=== PATIENT | male | born 1985 | race Two or more races ===

== ENCOUNTER → 2019-02-09 | Outpatient (CLI) | payer OTHER ==
--- NOTE | 2019-02-09 17:34 | XR ---
EXAMINATION TYPE: XR cervical spine 5 views comp, XR thoracic spine 3 views XR shoulder complete 3 views RT DATE OF EXAM: 02/09/2019 COMPARISON: None HISTORY: 33-year-old male chronic pain. Z68.26, M54.2, G47.00 FINDINGS: Cervical spine: No predental space widening or prevertebral soft tissue swelling. ACDF hardware at C3-C4 with mature interbody ankylosis. Mild degenerative disc disease below it C4-C5. Alignment is maintained mild unco vertebral joint and facet arthropathy also at C4-C5. Thoracic spine: Vertebral body heights are preserved. Alignment is maintained. Mild endplate spondylosis midthoracic spine. Right shoulder: AC joint appears congruent and intact. Subacromial space is preserved. No acute fracture, subluxation , or dislocation. IMPRESSION: 1. Cervical spine: Uncomplicated C3-C4 ACDF. Mild degenerative disc disease and uncovertebral joint a rthropathy below at C4-C5. No malalignment. 2. Thoracic spine: Mild endplate spondylosis midthoracic spine. No vertebral compression collapse or malalignment. 3. Right shoulder: No acute osseous abnormality seen.
== END | disposition home or self-care (01) ==
LOC: RADXRMAIN 14:36
PROVIDERS: ATTEND Physician Assistant
DX: M50.321 Other cervical disc degeneration at C4-C5 level (principal); M46.92 Unspecified inflammatory spondylopathy, cervical region; M47.814 Spondylosis without myelopathy or radiculopathy, thoracic region; M25.511 Pain in right shoulder
CPT/HCPCS: 72050; 72070

== ENCOUNTER → 2019-04-29 | Outpatient (CLI) | payer OTHER | END | disposition home or self-care (01) | LOC: RADECHMAIN 11:50 | PROVIDERS: ATTEND Pediatrics | DX: R00.2 Palpitations (principal) | CPT/HCPCS: 93270 ==

== ENCOUNTER → 2020-06-21 | Outpatient (CLI) | payer OTHER ==
--- NOTE | 2020-06-22 08:42 | MR ---
EXAMINATION TYPE: MR lumbar spine wo con DATE OF EXAM: 06/21/2020 COMPARISON: None HISTORY: Low back pain since summer 2019. CONTRAST: 0 mL intravenous Gadavist. TECHNIQUE: Multiplanar, multisequence images of the lumbar spine were acquired. FINDINGS: L5-S1: No significant disc bulge or disc herniation. No spinal canal stenosis. No foraminal stenosi s. Disc desiccation is present. No loss of disc height is present. In the sagittal T1-weighted images there is suggestion of some minimal subligamentous disc herniation extending beyond the endplate of S1. No significant thecal sac compression is evident. This may be slightly greater in the right parac entral region. L4-L5: No significant disc bulge or disc herniation. No spinal canal stenosis. No foraminal stenosi s. Disc desiccation is present. No loss of disc height is present. L3-L4: No significant disc bulge or disc herniation. No spinal canal stenosis. No foraminal stenosi s. L2-L3: No significant disc bulge or disc herniation. No spinal canal stenosis. No foraminal stenosi s. L1-L2: No significant disc bulge or disc herniation. No spinal canal stenosis. No foraminal stenosi s. T12-L1: No significant disc bulge or disc herniation. No spinal canal stenosis. No foraminal stenos is. IMPRESSION: 1. Mild disc desiccation without loss of disc height at L4-5 and L5-S1. 2. Small subligamentous disc herniation L5-S1
== END ==
LOC: RADMRIMAIN 16:09
PROVIDERS: ATTEND Physician Assistant
DX: M51.37 Other intervertebral disc degeneration, lumbosacral region (principal)
CPT/HCPCS: 72148

== ENCOUNTER 2021-05-01 04:56 | Emergency (ER) | payer OTHER ==
[2021-05-01] MEDS ORDERED: KETOROLAC 15 MG/ML 1 ML VIAL IVP STA (05:52)
[2021-05-01] MEDS ORDERED: SODIUM CHLORIDE 0.9% 1,000 ML IV STA ×2 (05:52→07:16)
[2021-05-01] MEDS ORDERED: DEXAMETHASONE SOD PHOSPHATE 10 MG/ML 1 ML VIAL IVP STA (05:52)
[2021-05-01] MEDS ORDERED: PROCHLORPERAZINE INJ 10 MG/2 ML VIAL IVP STA (05:52)
[2021-05-01] MEDS ORDERED: ACETAMINOPHEN TAB 500 MG TAB PO STA (05:52)
--- NOTE | 2021-05-01 05:53 | ED ---
Recheck HPI - General Chief Complaint: GI Bleed Stated Complaint: Blood in vomit, COVID+ Time Seen by Provider: 05/01/21 05:39 Source: patient, RN notes reviewed, old records reviewed Mode of arrival: ambulatory - History of Present Illness Initial Comments: This is a 35-year-old male to the ER today for evaluation. Patient's presents today for evaluation regards to nausea vomiting blood in the vomit. Patient's about 10 days into a coronavirus diagnosis has been still spiking fevers with weakness decreased appetite and decreased activity level. Otherwise patient has no significant recent trauma. No drugs or alcohol history. No prior history of GI bleed. No blood thinners MD Complaint: abnormal lab (She does have coronavirus), other (Persistent nausea vomiting with coronavirus) -: hour(s) Returns Today for: persistent/worsening pain related to initial visit Symptoms Since Prior Visit: worsening pain, fever Associated Symptoms: fever, chills, malaise, nausea Treatments Prior to Arrival: other medications - Related Data Home Medications Medication Instructions Recorded Confirmed Benzonatate [Tessalon Perles] 200 mg PO TID PRN 05/01/21 05/01/21 Previous Rx's Medication Instructions Recorded Ondansetron Odt [Zofran Odt] 4 mg PO Q8HR PRN #10 tab 04/26/21 Allergies Allergy/AdvReac Type Severity Reaction Status Date / Time adhesive tape Allergy Rash/Hives Verified 05/01/21 07:21 influenza A (H1N1) virus Allergy Unknown Verified 05/01/21 07:21 vaccine m-karen-split 2008 [From influenza A (H1N1)] sulfamethoxazole Allergy Rash/Hives Verified 05/01/21 07:21 [From Bactrim] trimethoprim [From Bactrim] Allergy Rash/Hives Verified 05/01/21 07:21 pain meds Allergy Unknown Uncoded 05/01/21 05:11 Review of Systems ROS Statement: Those systems with pertinent positive or pertinent negative responses have been documented in the HPI. ROS Other: All systems not noted in ROS Statement are negative. Past Medical History Past Medical History: No Reported History History of Any Multi-Drug Resistant Organisms: None Reported Past Surgical History: Hernia Repair, Orthopedic Surgery Additional Past Surgical History / Comment(s): plate in neck Past Psychological History: PTSD Smoking Status: Former smoker Past Alcohol Use History: Rare Past Drug Use History: None Reported General Exam General appearance: alert, in no apparent distress, anxious Head exam: Present: atraumatic, normocephalic, normal inspection Eye exam: Present: normal appearance, PERRL, EOMI. Absent: scleral icterus, conjunctival injection, periorbital swelling ENT exam: Present: normal exam, mucous membranes moist Neck exam: Present: normal inspection. Absent: tenderness, meningismus, lymphadenopathy Respiratory exam: Present: normal lung sounds bilaterally. Absent: respiratory distress, wheezes, rales, rhonchi, stridor Cardiovascular Exam: Present: normal rhythm, tachycardia, normal heart sounds. Absent: systolic murmur, diastolic murmur, rubs, gallop, clicks GI/Abdominal exam: Present: soft, normal bowel sounds. Absent: distended, tenderness, guarding, rebound, rigid Extremities exam: Present: normal inspection, full ROM, normal capillary refill. Absent: tenderness, pedal edema, joint swelling, calf tenderness Back exam: Present: normal inspection Neurological exam: Present: alert, oriented X3, CN II-XII intact Psychiatric exam: Present: normal affect, normal mood Skin exam: Present: warm, dry, intact, normal color. Absent: rash Course Vital Signs 05/01/21 05/01/21 05/01/21 05:12 06:15 06:50 Temperature 103.1 F H 104 F H 102.2 F H Pulse Rate 115 H 100 Respiratory 20 20 Rate Blood Pressure 113/75 125/70 O2 Sat by Pulse 96 99 Oximetry 05/01/21 07:39 Temperature 99.3 F Pulse Rate 102 H Respiratory 18 Rate Blood Pressure 108/60 O2 Sat by Pulse 95 Oximetry - Reevaluation(s) Reevaluation #1: 05/02/21 Medical record is reviewed Reevaluation #2: 05/02/21 Patient symptoms are significantly improved here in the ER Reevaluation #3: 05/02/21 Patient informed results questions answered feels good for discharge home no recurrent vomiting of blood Medical Decision Making - Medical Decision Making 35 male to the ER for recurrent coronavirus diagnosis. Patient symptoms are resolved here in the ER no active vomiting of blood labwork is normal patient feels improved and can be discharged home - Lab Data Result diagrams: 05/01/21 06:09 05/01/21 06:09 Lab Results 05/01/21 05/01/21 05/01/21 Range/Units 06:09 06:09 06:09 WBC 4.2 (3.8-10.6) k/uL RBC 5.09 (4.30-5.90) m/uL Hgb 15.8 (13.0-17.5) gm/dL Hct 44.8 (39.0-53.0) % MCV 88.1 (80.0-100.0) fL MCH 31.0 (25.0-35.0) pg MCHC 35.2 (31.0-37.0) g/dL RDW 12.5 (11.5-15.5) % Plt Count 238 (150-450) k/uL MPV 8.2 Neutrophils % 77 % Lymphocytes % 17 % Monocytes % 4 % Eosinophils % 0 % Basophils % 0 % Neutrophils # 3.2 (1.3-7.7) k/uL Lymphocytes # 0.7 L (1.0-4.8) k/uL Monocytes # 0.2 (0-1.0) k/uL Eosinophils # 0.0 (0-0.7) k/uL Basophils # 0.0 (0-0.2) k/uL PT 11.0 (9.0-12.0) sec INR 1.0 (<1.2) APTT 28.3 (22.0-30.0) sec Sodium 130 L (137-145) mmol/L Potassium 3.9 (3.5-5.1) mmol/L Chloride 95 L (98-107) mmol/L Carbon Dioxide 21 L (22-30) mmol/L Anion Gap 14 mmol/L BUN 16 (9-20) mg/dL Creatinine 1.24 (0.66-1.25) mg/dL Est GFR (CKD-EPI)AfAm 86 (>60 ml/min/1.73 sqM) Est GFR (CKD-EPI)NonAf 74 (>60 ml/min/1.73 sqM) Glucose 109 H (74-99) mg/dL Calcium 8.9 (8.4-10.2) mg/dL Magnesium 2.0 (1.6-2.3) mg/dL Ferritin 1874.0 H (22.0-322.0) ng/mL Total Bilirubin 0.7 (0.2-1.3) mg/dL AST 82 H (17-59) U/L ALT 80 H (4-49) U/L Alkaline Phosphatase 28 L (38-126) U/L Lactate Dehydrogenase 1122 H (313-618) U/L C-Reactive Protein 4.0 H (<1.0) mg/dL Total Protein 6.8 (6.3-8.2) g/dL Albumin 4.1 (3.5-5.0) g/dL - EKG Data -: EKG Interpreted by Me (EKG shows sinus a cardia 103 MI 138 QRS 100 QTC 445) Disposition Clinical Impression: Nausea & vomiting, COVID-19, Weakness, Fever Disposition: HOME SELF-CARE Condition: Good Instructions (If sedation given, give patient instructions): Acute Nausea and Vomiting (ED) Is patient prescribed a controlled substance at d/c from ED?: No Referrals: Zane Donohue MD [Primary Care Provider] - 1-2 days
[2021-05-01] MEDS ORDERED: SODIUM CHLORIDE 0.9% 1,000 ML IV SCH (06:00)
[2021-05-01 06:23] LABS: Basophils % (A) 0 %; Eosinophils % (A) 0 %; HCT 44.8 % (39.0-53.0); HGB 15.8 gm/dL (13.0-17.5); Lymphocytes # (A) 0.7 k/uL (1.0-4.8); Lymphocytes % (A) 17 %; MCHC 35.2 g/dL (31.0-37.0); MCV 88.1 fL (80.0-100.0); Mean Platelet Volume 8.2; Monocytes # (A) 0.2 k/uL (0-1.0); Monocytes % (A) 4 %; Neutrophils # (A) 3.2 k/uL (1.3-7.7); Neutrophils % (A) 77 %; Platelet Count 238 k/uL (150-450); RBC 5.09 m/uL (4.30-5.90); RDW 12.5 % (11.5-15.5); WBC 4.2 k/uL (3.8-10.6)
[2021-05-01 06:36] LABS: Albumin 4.1 g/dL (3.5-5.0); Calcium 8.9 mg/dL (8.4-10.2); Potassium 3.9 mmol/L (3.5-5.1); Total Bilirubin 0.7 mg/dL (0.2-1.3); Total Protein 6.8 g/dL (6.3-8.2)
[2021-05-01 06:41] LABS: Partial Thromboplastin Time 28.3 sec (22.0-30.0)
[2021-05-01] MEDS ORDERED: ONDANSETRON 4 MG ODT STARTER PACK 2 TAB BTL PO STA (07:15)
[2021-05-01] MEDS ORDERED: IBUPROFEN 600 MG STARTER PACK 4 TAB BTL PO STA (07:15)
[2021-05-01 07:40] VITALS: BP 108/60; PULSE 102; RESP 18; TEMP 99.3
== END 2021-05-01 07:39 | disposition home or self-care (01) ==
LOC: EC 04:56
DX: U07.1 COVID-19 (principal); R11.2 Nausea with vomiting, unspecified; R53.1 Weakness; F43.12 Post-traumatic stress disorder, chronic; Z88.1 Allergy status to other antibiotic agents; Z88.2 Allergy status to sulfonamides; Z88.7 Allergy status to serum and vaccine; Z87.891 Personal history of nicotine dependence
CPT/HCPCS: 99285; 96374; 96375 ×2; 96361 ×2; 36415; 93005; 80053; 82728; 83615; 83735; 85025; 85610; 85730; 86140; 87040; J0780; J1100; J1885; S0119

== ENCOUNTER → 2023-10-31 | Outpatient (CLI) | payer OTHER ==
--- NOTE | 2023-10-31 22:26 | US ---
EXAMINATION TYPE: US scrotum with doppler. Grayscale and color Doppler Duplex imaging performed of luz maria gurrola scrotum. DATE OF EXAM: 10/31/2023 COMPARISON: NONE CLINICAL INDICATION: Male, 38 years old with history of N50.819 TESTICULAR PAIN; Right inguinal herni a repair in 2008, pain since. Left lateral testicle pain and swelling. Infertility x 1 year. EXAM MEASUREMENTS: TESTICLES: Right Testicle: 5.4 x 2.0 x 3.2 cm Left Testicle: 4.8 x 1.9 x 2.1 cm EPIDIDYMIS HEAD: Right Epididymis: 1.4 x 1.0 x 1.3 cm hypoechoic heterogenous area at the tail = 1.4 cm cm Left Epididymis: 1.0 x 1.1 x 1.2 cm Doppler performed to assess for testicular vascularity; good bilateral color flow and waveforms are s een. There is no evidence of testicular torsion. Presence of hydroceles: NO Presence of varicoceles: Left IMPRESSION: 1. No acute changes scrotal ultrasound.
== END | disposition home or self-care (01) ==
LOC: RADUSWWP 13:07
PROVIDERS: ATTEND Pediatrics
DX: N50.819 Testicular pain, unspecified (principal)
CPT/HCPCS: 76870; 93975

== ENCOUNTER 2024-07-10 14:48 | Emergency (ER) | payer OTHER ==
--- NOTE | 2024-07-10 16:20 | ED ---
General Adult HPI - General Chief complaint: Back Pain/Injury Stated complaint: Back pain Time Seen by Provider: 07/10/24 15:28 Source: patient Mode of arrival: wheelchair Limitations: no limitations - History of Present Illness Initial comments: Dictation was produced using [employer] dictation software. please excuse any grammatical, word or spelling errors. Chief Complaint: 38-year-old male with chronic back pain presents with acute back pain History of Present Illness: Patient is a 38-year-old male presents to the emergency department with acute on chronic back pain he has several years of back pain. States that he saw a [place] retail pos specialist that told him he is not a candidate for surgery due to location of where his bulging disc is. Stephen calvert has not seen a retail pos specialist recently. He has tried physical therapy. States that this morning he woke up. He suspects that he twisted abnormally and the pain woke him up. States the pain radiates down his area. Denies any saddle anesthesia. No issues with bowel or bladder control. No fever. No history of IV drug use. The ROS documented in this emergency department record has been reviewed and confirmed by me. Those systems with pertinent positive or negative responses have been documented in the HPI. All other systems are other negative and/or noncontributory. - Related Data Home Medications Medication Instructions Recorded Confirmed Benzonatate [Tessalon Perles] 200 mg PO TID PRN 05/01/21 05/01/21 Previous Rx's Medication Instructions Recorded Ondansetron Odt [Zofran Odt] 4 mg PO Q8HR PRN #10 tab 04/26/21 Ibuprofen [Motrin] 800 mg PO Q8H PRN #24 tab 07/10/24 methylPREDNISolone Dose Pack 4 mg PO DIRECTED #1 packet 07/10/24 [Medrol Dose Pack] Allergies Allergy/AdvReac Type Severity Reaction Status Date / Time adhesive tape Allergy Rash/Hives Verified 05/01/21 07:21 influenza A (H1N1) virus Allergy Unknown Verified 05/01/21 07:21 vaccine m-karen-split 2008 [From influenza A (H1N1)] sulfamethoxazole Allergy Rash/Hives Verified 05/01/21 07:21 [From Bactrim] trimethoprim [From Bactrim] Allergy Rash/Hives Verified 05/01/21 07:21 pain meds Allergy Unknown Uncoded 05/01/21 05:11 Review of Systems ROS Statement: Those systems with pertinent positive or pertinent negative responses have been documented in the HPI. ROS Other: All systems not noted in ROS Statement are negative. Past Medical History Past Medical History: No Reported History History of Any Multi-Drug Resistant Organisms: None Reported Past Surgical History: Hernia Repair, Orthopedic Surgery Additional Past Surgical History / Comment(s): plate in neck Past Psychological History: PTSD Smoking Status: Former smoker Past Alcohol Use History: Rare Past Drug Use History: None Reported General Exam - General Exam Comments Initial Comments: PHYSICAL EXAM: General Impression: Alert and oriented x3, not in acute distress HEENT: Normocephalic atraumatic, extra-ocular movements intact, pupils equal and reactive to light bilaterally, mucous membranes moist. Cardiovascular: Heart regular rate and rhythm Chest: Able to complete full sentences, no retractions, no tachypnea Abdomen: abdomen soft, non-tender, non-distended, no organomegaly Musculoskeletal: Pulses present and equal in all extremities, no peripheral edema Motor: no focal deficits noted Neurological: CN II-XII grossly intact, no focal motor or sensory deficits noted Skin: Intact with no visualized rashes Psych: Normal affect and mood Limitations: no limitations Course Vital Signs 07/10/24 14:51 Temperature 98.5 F Pulse Rate 118 H Respiratory 18 Rate Blood Pressure 136/87 O2 Sat by Pulse 99 Oximetry Medical Decision Making - Medical Decision Making Was pt. sent in by a medical professional or institution (, PA, ZINC PLATING MACHINE OPERATOR, urgent care, hospital, or correction...) When possible be specific @ -No Did you speak to anyone other than the patient for history (EMS, parent, family, police, friend...)? What history was obtained from this source @ -No Did you review nursing and triage notes (agree or disagree)? Why? @ -I reviewed and agree with nursing and triage notes Were old charts reviewed (outside hosp., previous admission, EMS record, old EKG, old radiological studies, urgent care reports/EKG's, correction records)? Report findings @ -No old charts were reviewed Differential Diagnosis (chest pain, altered mental status, abdominal pain women, abdominal pain men, vaginal bleeding, musculoskeletal, weakness, fever, dyspnea, syncope, headache, dizziness, GI bleed, back pain, seizure, CVA, palpatations, mental health)? @Differential Back Pain: Strain, zoster, cauda equina syndrome, epidural abscess, vertebral osteomyelitis, discitis, fracture, subluxation, disc herniation, DJD, spinal stenosis, dissection, AAA, pancreatitis, peptic ulcer disease, pyelonephritis, kidney stone, this is not meant to be an all-inclusive list. EKG interpreted by me (3pts min.). @ -None done X-rays interpreted by me (1pt min.). @ -None done CT interpreted by me (1pt min.). @ -CT lumbar spine shows no acute processes U/S interpreted by me (1pt. min.). @ -None done What testing was considered but not performed or refused? (CT, X-rays, U/S, labs)? Why? @ -None What meds were considered but not given or refused? Why? @ -None Was smoking cessation discussed for >3mins.? @ -No Were there social determinants of health that impacted care today? How? (Homelessness, low income, unemployed, alcoholism, drug addiction, transportation, low edu. Level, literacy, decrease access to med. care, retirement, rehab)? @ -No Was there de-escalation of care discussed even if they declined (Discuss DNR or withdrawal of care, Hospice)? DNR status @ -No What co-morbidities impacted this encounter? (DM, HTN, Smoking, COPD, CAD, Cancer, CVA, ARF, Chemo, Hep., AIDS, mental health diagnosis, sleep apnea, morbid obesity)? @ -Chronic back pain Was patient admitted / discharged? Hospital course, mention meds given and route, prescriptions, significant lab abnormalities, going to OR and other pertinent info. @ -38-year-old male presents to the emergency department acute on chronic back pain vital signs stable. Patient has no high risk complaints. Vital exam shows distressed male secondary to back pain. No red flag symptoms. Imaging studies are negative. Patient symptoms slightly improved after Decadron. Patient offered opiates however states that he would prefer not to have any opiates due to history of opiate addiction. Patient discharged with Motrin, Medrol Dosepak and spine surgery referral. Did you discuss the management of the patient with other professionals (professionals i.e. , PA, ZINC PLATING MACHINE OPERATOR, lab, RT, psych nurse, social work job titles, calender machine operator, teacher, public health officer, watch case polisher)? Give summary @ -No Was critical care preformed (if so, how long)? @ -No Undiagnosed new problem with uncertain prognosis? @ -No Drug Therapy requiring intensive monitoring for toxicity (Heparin, Nitro, Insulin, Cardizem)? @ -No Were any procedures done? @ -No Diagnosis/symptom? Acute, or Chronic, or Acute on Chronic? Uncomplicated (without systemic symptoms) or Complicated (systemic symptoms)? @ -Back pain Side effects of treatment? @ -No Exacerbation, Progression, or Severe Exacerbation? @ -No Poses a threat to life or bodily function? How? (Chest pain, [place], [place], pneumonia, PE, COPD, DKA, ARF, appy, cholecystitis, CVA, Diverticulitis, Homicidal, Suicidal, threat to staff... and all critical care pts) @ -yes Disposition Clinical Impression: Back pain Disposition: HOME SELF-CARE Condition: Fair Instructions (If sedation given, give patient instructions): Acute Low Back Pain (ED) Prescriptions: methylPREDNISolone Dose Pack [Medrol Dose Pack] 4 mg PO DIRECTED #1 packet Ibuprofen [Motrin] 800 mg PO Q8H PRN #24 tab PRN Reason: back strain Is patient prescribed a controlled substance at d/c from ED?: No Referrals: Jesus Ivey DO [Doctor of Osteopathic Medicine] - 1-2 days Micheline Vasquez DO [Doctor of Osteopathic Medicine] - 1-2 days Time of Disposition: 17:32
--- NOTE | 2024-07-10 17:03 | CT ---
EXAMINATION TYPE: CT lumbar spine wo con CT DLP: 1374.6 mGycm, Automated exposure control for dose reduction was used. DATE OF EXAM: 07/10/2024 4:50 PM COMPARISON: MRI lumbar spine 06/21/2020. CLINICAL INDICATION:Male, 38 years old with history of back pain; PHH, Low back pain., pain TECHNIQUE: Multiple axial images were obtained from the midportion of T11 through the sacroiliac jeremy nts. Soft tissue and bone windows in coronal and sagittal planes were obtained and reviewed. Contrast used: none. Oral contrast used: none. FINDINGS: Alignment: There are 5 lumbar type vertebral bodies within normal alignment. Bone: No evidence of fracture is identified. Schmorl's node involving the inferior endplate of the L 4 vertebral body. Both SI joints are intact. Discs: T12-L1: No spinal canal or neural foraminal stenosis is identified. L1-L2: No spinal canal or neural foraminal stenosis is identified. L2-L3: No spinal canal or neural foraminal stenosis is identified. L3-L4: No spinal canal or neural foraminal stenosis is identified. L4-L5: Broad-based disc bulge with minimal effacement of the anterior thecal sac. No significant cent ral canal stenosis. No neural foraminal stenosis. L5-S1: Broad-based disc bulge without significant effacement of the anterior thecal sac. No significa nt central canal stenosis. No neural foraminal stenosis. Other: The visualized portion of the right hepatic lobe is diffusely low attenuating. IMPRESSION: 1. No evidence for spinal fracture. 2. Mild degenerative disc disease of the lower lumbar spine as described above. 3. Hepatic steatosis. [facility], , 07/10/2024 5:01 PM
[2024-07-10] MEDS: KETOROLAC 15 MG/ML 1 ML VIAL IM STA (17:18)
[2024-07-10] MEDS: DEXAMETHASONE SOD PHOSPHATE 10 MG/ML 1 ML VIAL IM STA (17:18)
[2024-07-10 18:27] VITALS: BP 147/82; PULSE 87; RESP 20; TEMP 97.5
--- NOTE | 2024-07-10 18:40 | ED ---
Disposition Clinical Impression: Back pain Disposition: HOME SELF-CARE Condition: Fair Instructions (If sedation given, give patient instructions): Acute Low Back Pain (ED) Prescriptions: methylPREDNISolone Dose Pack [Medrol Dose Pack] 4 mg PO DIRECTED #1 packet Ibuprofen [Motrin] 800 mg PO Q8H PRN #24 tab PRN Reason: Pain Is patient prescribed a controlled substance at d/c from ED?: No Referrals: Micheline Vasquez DO [Doctor of Osteopathic Medicine] - 1-2 days Jesus Ivey DO [Doctor of Osteopathic Medicine] - 1-2 days
== END 2024-07-10 18:27 | disposition home or self-care (01) ==
LOC: EC 14:48
DX: G89.29 Other chronic pain (principal); M54.9 Dorsalgia, unspecified; Z88.1 Allergy status to other antibiotic agents; Z88.2 Allergy status to sulfonamides; Z91.09 Other allergy status, other than to drugs and biological substances; Z88.7 Allergy status to serum and vaccine; Z87.891 Personal history of nicotine dependence
CPT/HCPCS: 72131; 99283; 96372 ×2; J1100; J1885